=== PATIENT | male | born 1980 | race Caucasian/White ===

== ENCOUNTER 2022-10-18 08:08 | Emergency (ER) | payer BC ==
[2022-10-18 08:44] LABS: BASOPHILS ABSOLUTE AUTO 0.02 K/uL (0.02-0.10); BASOPHILS PERCENT AUTO 0.5 % (0.0-0.5); EOSINOPHILS ABSOLUTE AUTO 0.04 K/uL (0.04-0.40); EOSINOPHILS PERCENT AUTO 0.9 % (1.0-5.0); HEMATOCRIT 45.1 % (40.0-54.0); HEMOGLOBIN 16.5 g/dL (13.0-18.0); LYMPHOCYTES ABSOLUTE AUTO 1.44 K/uL (1.50-4.00); MEAN CORPUSCULAR HEMOGLOBIN 31.5 pg (27.0-32.0); MEAN CORPUSCULAR HGB CONC 36.6 g/dL (31.0-35.0); MEAN CORPUSCULAR VOLUME 86 fL (76-96); MEAN PLATELET VOLUME 8.9 fL (6.0-10.0); MONOCYTES ABSOLUTE AUTO 0.31 K/uL (0.20-0.80); MONOCYTES PERCENT AUTO 7.3 % (3.0-10.0); NEUTROPHILS ABSOLUTE AUTO 2.43 K/uL (2.00-7.50); NEUTROPHILS PERCENT AUTO 57.3 % (45.0-70.0); PLATELET COUNT,PLT 207 K/uL (150-400); RED BLOOD CELL COUNT 5.24 M/uL (4.50-6.50); RED CELL DISTRIBUTION WIDTH 12.3 % (11.0-16.0); WHITE BLOOD CELL COUNT,WBC 4.2 K/uL (4.0-11.0)
[2022-10-18 09:14] LABS: A/G RATIO 1.3 (0.8-2.0); ALANINE AMINOTRANSFERASE,ALT 67 U/L (12-78); ALBUMIN 4.2 g/dL (3.4-5.0); ALKALINE PHOSPHATASE 81 U/L (46-116); ANION GAP 7.2 mmol/L (5.0-15.0); ASPARTATE AMNIOTRANSFERASE,AST 26 U/L (15-37); BLOOD UREA NITROGEN,BUN 15 mg/dL (8-26); CALCIUM 9.3 mg/dL (8.5-10.1); CARBON DIOXIDE,CO2 26.9 mmol/L (21.0-32.0); CHLORIDE,CL 106 mmol/L (98-107); CREATININE 1.25 mg/dL (0.70-1.30); ESTIMATED GFR 74 mL/min (>60); GLUCOSE RANDOM 105 mg/dL (74-100); POTASSIUM,K 4.1 mmol/L (3.5-5.1); PROTEIN TOTAL,TP 7.5 g/dL (6.4-8.2); SODIUM,NA 136 mmol/L (136-145); TSH ULTRASENSITIVE 0.797 uIU/mL (0.358-3.740)
[2022-10-18 09:16] LABS: HEMOGLOBIN A1C 5.4 % (< 5.7)
[2022-10-18 09:17] LABS: TROPONIN I HIGH SENSITIVITY < 4.0 pg/ml (<=60.4)
== END 2022-10-18 09:51 | disposition home or self-care (01) ==
LOC: LB.ED 08:08
DX: H61.23 Impacted cerumen, bilateral (principal); R42 Dizziness and giddiness
CPT/HCPCS: 36415; 70450; 80053; 83036; 84443; 84484; 85025; 93005; 99284

== ENCOUNTER 2022-12-30 12:48 | Emergency (ER) | payer BC ==
[2022-12-30 13:15] VITALS: BP 133/86; PULSE 87
[2022-12-30 14:22] LABS: A/G RATIO 1.2 (0.8-2.0); ALBUMIN 4.2 g/dL (3.4-5.0); ANION GAP 14.9 mmol/L (5.0-15.0); BILIRUBIN TOTAL 0.6 mg/dL (0.0-1.0); BUN/CREATININE RATIO 17.7 (6-25); CALCIUM 9.7 mg/dL (8.5-10.1); CARBON DIOXIDE,CO2 23.4 mmol/L (21.0-32.0); CREATININE 1.13 mg/dL (0.70-1.30); EST CRCL DRUG DOSING (CG) 83.23 mL/min; MAGNESIUM 2.1 mg/dL (1.8-2.4); PHOSPHORUS 2.3 mg/dL (2.5-4.9); POTASSIUM,K 4.3 mmol/L (3.5-5.1); PROTEIN TOTAL,TP 7.6 g/dL (6.4-8.2)
[2022-12-30] MEDS ORDERED: Potassium Phosphates 3 mMole/ML 15 ML SDV IV STA (15:00)
[2022-12-30] MEDS ORDERED: SODIUM CHLORIDE IV ONE (16:00)
[2022-12-30] MEDS ORDERED: SODIUM PHOSPHATE IV ONE (16:00)
== END 2022-12-30 18:59 | disposition home or self-care (01) ==
LOC: LB.ED 12:48
DX: E83.39 Other disorders of phosphorus metabolism (principal); F17.210 Nicotine dependence, cigarettes, uncomplicated
CPT/HCPCS: 36415; 72125; 80053; 83735; 84100; 87476; 96365; 96366; 99283; 99284-25; J3490

== ENCOUNTER 2023-01-27 19:31 | Emergency (ER) | payer BC ==
[2023-01-27 20:15] LABS: BASOPHILS ABSOLUTE AUTO 0.03 K/uL (0.02-0.10); BASOPHILS PERCENT AUTO 0.3 % (0.0-0.5); EOSINOPHILS ABSOLUTE AUTO 0.16 K/uL (0.04-0.40); EOSINOPHILS PERCENT AUTO 1.9 % (1.0-5.0); HEMATOCRIT 42.7 % (40.0-54.0); HEMOGLOBIN 15.5 g/dL (13.0-18.0); LYMPHOCYTES ABSOLUTE AUTO 2.38 K/uL (1.50-4.00); LYMPHOCYTES PERCENT AUTO 27.6 % (20.0-40.0); MEAN CORPUSCULAR HEMOGLOBIN 31.6 pg (27.0-32.0); MEAN CORPUSCULAR HGB CONC 36.3 g/dL (31.0-35.0); MEAN CORPUSCULAR VOLUME 87 fL (76-96); MEAN PLATELET VOLUME 8.6 fL (6.0-10.0); MONOCYTES ABSOLUTE AUTO 0.56 K/uL (0.20-0.80); MONOCYTES PERCENT AUTO 6.5 % (3.0-10.0); NEUTROPHILS PERCENT AUTO 63.7 % (45.0-70.0); PLATELET COUNT,PLT 217 K/uL (150-400); RED CELL DISTRIBUTION WIDTH 12.6 % (11.0-16.0); WHITE BLOOD CELL COUNT,WBC 8.6 K/uL (4.0-11.0)
[2023-01-27 20:42] LABS: A/G RATIO 1.2 (0.8-2.0); ALBUMIN 4.1 g/dL (3.4-5.0); ANION GAP 14.7 mmol/L (5.0-15.0); BILIRUBIN TOTAL 0.4 mg/dL (0.0-1.0); BUN/CREATININE RATIO 15.2 (6-25); CALCIUM 9.3 mg/dL (8.5-10.1); CARBON DIOXIDE,CO2 24.8 mmol/L (21.0-32.0); CREATININE 1.05 mg/dL (0.70-1.30); EST CRCL DRUG DOSING (CG) 89.57 mL/min; POTASSIUM,K 3.5 mmol/L (3.5-5.1); PROTEIN TOTAL,TP 7.6 g/dL (6.4-8.2)
== END 2023-01-27 21:30 | disposition home or self-care (01) ==
LOC: LB.ED 19:31
DX: R10.13 Epigastric pain (principal); R61 Generalized hyperhidrosis; Z79.899 Other long term (current) drug therapy
CPT/HCPCS: 36415; 80053; 83690; 84484; 85025; 93005; 93010; 99283; 99284

== ENCOUNTER 2023-06-09 10:30 | Day surgery (SDC) | payer BC ==
[~2023-06-09 10:30] MED LIST: Sodium Chloride 0.9% 1,000 ML IV SCH
[2023-06-09] MEDS ORDERED: Propofol 200 MG/20 ML SDV ONE (12:10)
== END 2023-06-09 12:58 | disposition home or self-care (01) ==
LOC: LB.SDS 10:30
PROVIDERS: ATTEND Surgery
DX: K29.50 Unspecified chronic gastritis without bleeding (principal); K31.89 Other diseases of stomach and duodenum; K21.9 Gastro-esophageal reflux disease without esophagitis; E78.00 Pure hypercholesterolemia, unspecified; Z79.899 Other long term (current) drug therapy
CPT/HCPCS: J2704; J7030